=== PATIENT | female | born 1940 | race Caucasian/White ===

== ENCOUNTER 2022-01-07 19:15 | Emergency (ER) | payer MEDICARE, OTHER ==
[~2022-01-07] VITALS: Ht 152.4 cm; Wt 62.1 kg
[~2022-01-07 19:15] MED LIST: ALDACTONE50 MG PO; ALLOPURINOL100 MG PO; AMLODIPINE PO; ATENOLOL25 MG PO; ATORVASTATIN CA20 MG PO; COLACE100 MG PO; COREG12.5 MG PO; FLOVENT HFA17 GM INH; Flonase; LISINOPRIL PO; MAGNESIUM OXID400 MG PO; NEXIUM20 MG PO; VESICARE5 MG PO; XARELTO10 MG PO
[2022-01-07] MEDS ORDERED: SODIUM CHLORIDE 0.9% 1000ML 1,000 ML IV STA (19:35)
[2022-01-07] MEDS ORDERED: TAMIFLU75 MG PO ×2 (20:25→20:26)
[2022-01-07 21:08] VITALS: BP 130/82
== END 2022-01-07 21:10 | disposition home or self-care (01) ==
LOC: FSED 19:36
DX: I95.9 Hypotension, unspecified (principal); J10.1 Influenza due to other identified influenza virus with other respiratory manifestations; N28.9 Disorder of kidney and ureter, unspecified; M10.9 Gout, unspecified; Z88.0 Allergy status to penicillin; Z85.3 Personal history of malignant neoplasm of breast
CPT/HCPCS: 71045; 80053; 81003; 83880; 84484; 85025; 87400; 93005; 99283